=== PATIENT | male | born 1955 | race Caucasian/White ===

== ENCOUNTER 2016-10-04 11:15 | Emergency (ER) | payer MEDICARE, MEDICAID ==
[~2016-10-04] VITALS: Ht 195.6 cm; Wt 104.3 kg
[2016-10-04] MEDS ORDERED: CLON0.5T PO (11:39)
[2016-10-04 15:39] VITALS: BP 185/88
== END 2016-10-04 15:39 | disposition home or self-care (01) ==
LOC: ER 11:17
DX: S13.4XXA Sprain of ligaments of cervical spine, initial encounter (principal); S39.012A Strain of muscle, fascia and tendon of lower back, initial encounter; J98.4 Other disorders of lung; F41.9 Anxiety disorder, unspecified; Z90.89 Acquired absence of other organs; V69.40XA Driver of heavy transport vehicle injured in collision with unspecified motor vehicles in traffic accident, initial encounter; Y93.89 Activity, other specified; Y92.413 State road as the place of occurrence of the external cause; Y99.8 Other external cause status
CPT/HCPCS: 71010; 71250; 72050; 72110; 93005; 99284; A4606; Z7610